=== PATIENT | male | born 2000 | race Caucasian/White ===

== ENCOUNTER 2022-01-30 11:44 | Emergency (ER) | payer OTHER, BC, SELFPAY ==
--- NOTE | ~2022-01-30 | CT_ITS ---
EXAMINATION: CT soft tissue neck w con DATE: 01/30/2022 13:06 INDICATION: Peritonsillar abscess. TECHNIQUE: Computed tomography (CT) of the neck was performed with 75 mL Omnipaque-350 intravenous co ntrast. Automated exposure control and iterative reconstruction technique were employed. The dose-susan gth product was 550.00 mGy-cm. COMPARISON: None FINDINGS: There is mild mucosal thickening in the paranasal sinuses. There is enlargement of the lenny angela tonsils, right worse than left. There is low-attenuation in the right palatine tonsil measuring up to 2.2 x 1.5 x 3.3 cm. There is mild bilateral high internal jugular chain lymphadenopathy, likely reactive. There is fat stranding in right neck, consistent with inflammation. There is mild mucosal thickening in the paranasal sinuses. There is kyphosis of cervical spine. IMPRESSION: 1. Enlarged palatine tonsils with low attenuation in right palatine tonsil, which may be phlegmon or early abscess. 2. Mild bilateral internal jugular chain lymphadenopathy, likely reactive. Reviewed, dictated and finalized at location B. IMPRESSION: 1. Enlarged palatine tonsils with low attenuation in right palatine tonsil, whi ch may be phlegmon or early abscess. 2. Mild bilateral internal jugular chain lymphadenopathy, likely reactive.
[2022-01-30 11:47] VITALS: BP 184/84; PULSE 126; RESP 20; TEMP 37; O2SAT 100
[2022-01-30 12:29] LABS: Basophils Absolute Auto 0.1 K/mm3 (0.0-0.1); Basophils Percent Auto 0.3 % (0.2-1.2); Eosinophils Percent Auto 0.1 % (0-4.4); Hematocrit 46.5 % (42.0-52.0); Hemoglobin 16.7 g/dL (14.0-18.0); Immature Granulocyte Absolute 0.06 K/mm3 (0.00-0.031); Immature Granulocyte Percent A 0.4 % (0-0.5); Lymphocytes Absolute Auto 2.52 K/mm3 (0.9-3.2); Lymphocytes Percent Auto 16.4 % (18.3-44.2); Mean Corpuscular HGB Conc 35.9 g/dl (32-36); Mean Corpuscular Hemoglobin 30.5 pg (26-34); Mean Platelet Volume 9.4 fl (7.4-10.4); Monocytes Absolute Auto 1.4 K/mm3 (0.1-0.6); Monocytes Percent Auto 8.8 % (2.6-8.5); Neutrophils Absolute Auto 11.4 K/mm3 (1.3-6.7); Platelet Count Result 226 k/mm3 (150-375); Red Blood Count 5.47 M/mm3 (4.6-6.20); White Blood Count 15.4 K/mm3 (4.5-10.0)
[2022-01-30 12:38] LABS: Alanine Aminotransferase 21 U/L (6-50); Alkaline Phosphatase 69 U/L (38-126); Anion Gap 17 mmol/L (8-16); Aspartate Amino Transferase 27 U/L (17-59); Bilirubin,Total 1.2 mg/dL (0.2-1.3); Blood Urea Nitrogen 15 mg/dL (9-20); Calcium 9.9 mg/dL (8.4-10.2); Carbon Dioxide 29 mmol/L (22-30); Chloride 95 mmol/L (98-107); Estimated CRCL calculation 125 ml/min; Estimated Glomerular Filt Rate > 60; Glucose 98 mg/dL (65-110); Potassium 4.2 mmol/L (3.4-5.0); Sodium 141 mmol/L (137-145)
--- NOTE | 2022-01-30 14:05 | ED.URI ---
HPI - URI/Sore Throat General Chief Complaint: Upper Respiratory Infection <Dalia Watkins PA-C - Last Filed: 01/30/22 18:05> Stated Complaint: possible peritonsilar abscess <Dalia Watkins PA-C - Last Filed: 01/30/22 18:05> Time Seen by Provider: 01/30/22 13:37 <Dalia Watkins PA-C - Last Filed: 01/30/22 18:05> Source: patient <Dalia Watkins PA-C - Last Filed: 01/30/22 18:05> Mode of arrival: ambulatory <Dalia Watkins PA-C - Last Filed: 01/30/22 18:05> Limitations: no limitations <Dalia Watkins PA-C - Last Filed: 01/30/22 18:05> History of Present Illness HPI Narrative: This is a 21 year old male that presents to the ER for sore throat ongoing over the last couple of days. Reports he has had difficulty swallowing since yesterday. Denies fever. <Dalia Waktins PA-C - Last Filed: 01/30/22 18:05> Related Data Allergies/Adverse Reactions: Allergies Allergy/AdvReac Type Severity Reaction Status Date / Time No Known Allergies Allergy Verified 01/30/22 13:28 <Dalia Watkins PA-C - Last Filed: 01/30/22 18:05> Review of Systems Review of Systems: CONSTITUTIONAL: Denies fever ENT: Reports sore throat GASTROINTESTINAL: Denies vomiting <Dalia Watkins PA-C - Last Filed: 01/30/22 18:05> All systems reviewed & are unremarkable except as noted in HPI and below <Dalia Watkins PA-C - Last Filed: 01/30/22 18:05> [facility]LY [facility] Past Medical History Medical History: Medical History (Updated 01/30/22 @ 18:34 by Jose Delacruz MD) No active medical problems <Dalia Watkins PA-C - Last Filed: 01/30/22 18:05> Social History Social History: Social History (Updated 01/30/22 @ 14:10 by Dalia L. Watkins, PA-C) Smoking status: Never smoker <Dalia Watkins PA-C - Last Filed: 01/30/22 18:05> Exam Narrative: GENERAL: Well-appearing, well-nourished, and in no acute distress. HEAD: Normocephalic, atraumatic. EYES: EOMI. ENT: Nares clear, no rhinorrhea or epistaxis. Mucous membranes moist. Oropharynx with sever tonsillar hypertrophy (R>L) NECK: Supple. Right-sided anterior cervical tender adenopathy CHEST: Clear to auscultation. No respiratory distress. No wheezes rales or rhonchi HEART: Regular rate and rhythm. No murmur heard. Normal peripheral pulses. EXTREMITIES: Normal range of motion. No edema. SKIN: Warm, dry, no rash. NEURO: No focal deficits. Alert and oriented x3. PSYCH: Normal mood and affect <Dalia Watkins PA-C - Last Filed: 01/30/22 18:05> Course CHART CALCULATOR/PA Physician Supervision Patient presenting for evaluation of sore throat, significant edema on exam with concern for potential peritonsillar abscess. CT imaging shows phlegmon versus early abscess. Patient was given IV steroids, antibiotics. Dr. Bonner with ENT was consulted and came to the emergency department. Decided to attempt drainage at bedside which was successful and incision and drainage notable for purulent discharge. Dr. Pena recommended oral antibiotics and steroid Dosepak outpatient. For this patient encounter, I reviewed the CHART CALCULATOR or PA documentation, treatment plan, and medical decision making; and I had [id number] time with this patient. <Ya Wade MD - Last Filed: 01/30/22 19:13> Consultations Consultation #1: Spoke with Dr. Delacruz about patient and workup who came to the ER to evaluate patient and drained the abscess. <Dalia Watkins PA-C - Last Filed: 01/30/22 18:05> Date: 01/30/22 <KELLE Blunt Last Filed: 01/30/22 18:05> Vital Signs Vital signs: Vital Signs Temperature 37.0 C 01/30/22 11:47 Pulse Rate 126 H 01/30/22 11:47 Respiratory Rate 20 01/30/22 11:47 Blood Pressure 184/84 H 01/30/22 11:47 Pulse Oximetry 100 01/30/22 11:47 Oxygen Delivery Room Air 01/30/22 11:47 Temperature 37.0 C 01/30/22 11:47 Pulse Rate 115 H 01/30/22 18:27 Respiratory Rate 18 01/30/22 18:27 Blood Pressure
[2022-01-30] MEDS: SODIUM CHLORIDE 0.9% IV 1,000 ML 999 ML IV CONT ×2 (14:39→17:21)
[2022-01-30] MEDS: AMPICILLIN SULB 3 GM/NS 100 ML 3 GM/100 ML VIAL IVPB (14:39)
[2022-01-30] MEDS: KETOROLAC 15 MG/ML VIAL (*BKC) IV PUSH (14:40)
[2022-01-30 15:08] LABS: Lactic Acid Reflex 1.1 mmol/L (0.7-2.0)
[2022-01-30 15:49] VITALS: BP 146/75; PULSE 115; RESP 18; O2SAT 99
--- NOTE | 2022-01-30 17:23 | PC.NURSE ---
Dr. Delacruz at bedside
--- NOTE | 2022-01-30 18:01 | WPDPROCEDUR ---
Procedures Other Procedures Procedure 1: Other Procedure: I and D of right peritonsillar abscess. CT reviewed consent obtained risks benefits costs discussed with patient area next the right tonsil infiltrated with 2 cc 1% lidocaine 1 100,000 parts epinephrine mucosa cut with 11 blade hemostat utilized to puncture and abscess copious amounts purulence drained patient tolerated procedure well no complications
--- NOTE | 2022-01-30 18:01 | WPDCN ---
Assessment and Plan Assessment and plan (1) Peritonsillar abscess: Code(s): J36 - Peritonsillar abscess Status: Acute Assessment and Plan: Augmentin for 10 days Medrol Dosepak follow-up in several weeks to discuss tonsillectomy. Patient voiced understanding and agreed. (2) Recurrent tonsillitis: Code(s): J03.91 - Acute recurrent tonsillitis, unspecified Status: Acute HPI Data of Consult Date/Time: 01/30/22 18:01 Primary Care Provider: Brain Talavera, Consult Narrative Reason for consult: right-sided TABULAR TYPIST Narrative: Hai Austin is a 21 year old male with frequent sore throats CT demonstrates right-sided large TABULAR TYPIST ENT consult for drainage. Patient reports getting multiple sore throats tonsillitis episodes per year. Review of Systems Review of Systems: All systems reviewed & are unremarkable except as noted in HPI and below PMFSH Past Medical History Medical History (Updated 01/30/22 @ 18:34 by Jose Delacruz MD) No active medical problems Social History Social History (Updated 01/30/22 @ 14:10 by Dalia Watkins PA-C) Smoking status: Never smoker Meds Home Medications and Allergies Home Medications Medication Instructions Recorded Confirmed Type amoxicillin 875 mg-potassium 1 tablet PO Q12H 10 days #20 tabs 01/30/22 Rx clavulanate 125 mg tablet hydrocodone 5 mg-acetaminophen 325 1 tablet PO Q6H PRN pain #14 tabs 01/30/22 Rx mg tablet methylprednisolone 4 mg tablets in See Rx Instructions PO .COMPLEX 01/30/22 Rx a dose pack #21 ea Allergies Allergy/AdvReac Type Severity Reaction Status Date / Time No Known Allergies Allergy Verified 01/30/22 13:28 Vital Signs Vital Signs - 24 hr 01/30/22 11:47 01/30/22 15:49 Temperature 37.0 C Pulse Rate 126 H 115 H Respiratory Rate 20 18 Blood Pressure 184/84 H 146/75 H Pulse Oximetry 100 99 Oxygen Delivery Room Air Exam Narrative: Deviation right-sided edema the peritonsillar region see procedure note drained Results Labs CBC & Chem 7: 01/30/22 12:13 01/30/22 12:13 Labs: Short CBC 01/30/22 Range/Units 12:13 WBC 15.4 H (4.5-10.0) K/mm3 Hgb 16.7 (14.0-18.0) g/dL Hct 46.5 (42.0-52.0) % Plt Count 226 (150-375) k/mm3 BMP 01/30/22 12:13 Sodium 141 Potassium 4.2 Chloride 95 L Carbon Dioxide 29 BUN 15 Creatinine 1.10 Glucose 98 Calcium 9.9 Liver Function 01/30/22 Range/Units 12:13 Total Bilirubin 1.2 (0.2-1.3) mg/dL AST 27 (17-59) U/L ALT 21 (6-50) U/L Alkaline Phosphatase 69 (38-126) U/L Albumin 5.0 (3.5-5.1) g/dL
[2022-01-30 18:27] VITALS: BP 152/80; PULSE 115; RESP 18; O2SAT 100
== END 2022-01-30 18:32 | disposition home or self-care (01) ==
PROVIDERS: Emergency Medicine; Physician Assistant; Emergency Provider Emergency Medicine; PCP Family Medicine
DX: J36 Peritonsillar abscess (principal)
CPT/HCPCS: 36415; 42700; 70491; 80053; 83605; 85025; 87040; 96361; 96365; 96375; 99284; A9270; J0131; J0295; J1100; J1885; J7030; Q9967

== ENCOUNTER 2022-10-08 08:49 | Emergency (ER) | payer OTHER, BC, SELFPAY ==
--- NOTE | 2022-10-08 09:03 | ED.URI ---
HPI - URI/Sore Throat General Chief Complaint: Upper Respiratory Infection Stated Complaint: Sore Throat Source: patient and RN notes reviewed History of Present Illness HPI Narrative: 21 yo M presents to urgent care with complaints of a sore throat x 2 days. Pt reports it feels like he is choking when he sleeps and is constantly waking him up. Pt reports fatigue and contributes this to not sleeping. Pt denies any fevers, chills, SOB, chest pain, or vomiting. Pt states this feels like when he had a peritonsillar abscess back in January. Pt took Tylenol around 0630 today. Related Data Home Medications Medication Instructions Recorded Confirmed citalopram 40 mg tablet 40 mg PO DAILY 08/07/22 10/08/22 omeprazole 40 mg capsule,delayed 40 mg PO DAILY 10/08/22 10/08/22 release Allergies Allergy/AdvReac Type Severity Reaction Status Date / Time No Known Allergies Allergy Verified 10/08/22 09:14 Review of Systems Review of Systems: Pertinent positives and pertinent negatives per HPI. [facility] Past Medical History Medical History (Updated 10/08/22 @ 09:36 by Bea Goyal, [employer]) No active medical problems Social History Social History (Updated 08/07/22 @ 09:30 by Rebeca Higgins, [facility]) Smoking status: Never smoker Alcohol intake: current Lack of Transportation: No Lack of Food: Never True Current Housing: I Have Housing Concerned About Future Housing: No Difficulty Paying Gas/Electric Bills: No Difficulty Paying for Meds: No Currently Unemployed: No Education: Associate Degree Difficulty w/ Childcare or Family Care: No Comments At the time of my signature, I reviewed and agree with the nursing past medical, surgical, social, and family history. There is no relevant family history pertinent to the patient complaint. Exam Narrative: GENERAL: This is a well-nourished, well-developed patient, in no apparent distress. HEAD: normocephalic, atraumatic. EYES: Sclera clear/white. Vision is grossly intact. EARS: External ears normal, auditory canals clear and without drainage. Hearing grossly intact. NOSE: External nose normal with no obvious nasal discharge, nares without redness, no rhinorrhea. THROAT: Mucous membranes moist, right tonsil 3+. NECK: Neck supple, non-tender without lymphadenopathy, masses or thyromegaly. CARDIOVASCULAR: Regular rate and rhythm without murmurs, gallops, or rubs. RESPIRATORY: Clear to auscultation. Breath sounds equal bilaterally. No wheezes, rales, or rhonchi. SKIN: warm, intact with no suspicious lesions or rash, good texture and turgor. NEURO: awake, alert, and oriented to person, place and time. There were no obvious focal neurologic abnormalities. Course Course Level of Care: Express Care Visit Vital Signs Vital signs: Vital Signs Temperature 98.2 F 10/08/22 09:04 Pulse Rate 93 10/08/22 09:04 Respiratory Rate 20 10/08/22 09:04 Blood Pressure 141/85 H 10/08/22 09:04 Pulse Oximetry 100 10/08/22 09:04 Oxygen Delivery Room Air 10/08/22 09:04 Temperature 98.2 F 10/08/22 09:04 Pulse Rate 93 10/08/22 09:04 Respiratory Rate 20 10/08/22 09:04 Blood Pressure 141/85 H 10/08/22 09:04 Pulse Oximetry 100 10/08/22 09:04 Oxygen Delivery Room Air 10/08/22 09:04 Reviewed MDM - URI/Sore Throat MDM Narrative Medical decision making narrative: Due to pt's enlarged right tonsil and reports of it feeling the same as when he had a peritonsillar abscess back in January, pt will be transferred to ED for further evaluation. Pt agrees to plan of care and is able to drive himself. Pt is stable. NAD. No trismus, dysphonia, or drooling. VSS. Pt instructed to be NPO until further evaluated. Report given to Dr. Dickey at [facility] who accepts pt. Differential Diagnosis Differential diagnosis: Likely upper respiratory infection, viral infection and pharyngitis Lab Data Attestation: I reviewed the patient's la
[2022-10-08 09:04] VITALS: BP 141/85; PULSE 93; RESP 20; TEMP 36.8; O2SAT 100
== END 2022-10-08 09:38 | disposition short-term general hospital (02) ==
PROVIDERS: Emergency Provider Nurse Practitioner Family; PCP Family Medicine
DX: R13.10 Dysphagia, unspecified (principal); J02.9 Acute pharyngitis, unspecified
CPT/HCPCS: 87081; 87880; 99213; G0463

== ENCOUNTER 2022-10-08 10:14 | Emergency (ER) | payer OTHER, BC, SELFPAY ==
--- NOTE | ~2022-10-08 | CT_ITS ---
CT scan of the Neck Technique: 2.5 mm axial scans were obtained through the neck after intravenous administration of 75 c c Omnipaque 350. Coronal and sagittal reconstructions of the neck were obtained. Dose reduction techn ique was used on this scan by utilizing automated exposure control and iterative reconstruction techn ique. The dose-length product (DLP) was 740.05 mGy-cm. Clinical History: Sore throat COMPARISON: 01/30/2022 Findings: Mildly prominent bilateral level 2 cervical lymph nodes are present. The parotid and submandibular gl ands are unremarkable. There is prominent appearance of the bilateral palatine tonsillar regions, wit hout definite abscess. Parapharyngeal fat is preserved bilaterally. The thyroid gland appears normal. Images of the lung apices reveal no abnormalities. Left maxillary s inus disease is present. Remaining paranasal sinuses and mastoid air cells are clear. Impression: Prominent bilateral palatine tonsils, suggestive of tonsillitis. No definite abscess identified. Left maxillary sinus disease. Reviewed, dictated and finalized at location . Impression: Prominent bilateral palatine tonsils, suggestive of tonsillitis. No definite ab scess identified. Left maxillary sinus disease.
[2022-10-08 10:19] VITALS: BP 149/78; PULSE 83; RESP 16; TEMP 36.9; O2SAT 98
[2022-10-08 11:17] LABS: Basophils Absolute Auto 0.1 K/mm3 (0.0-0.1); Basophils Percent Auto 0.5 % (0.2-1.2); Eosinophils Absolute Auto 0.1 K/mm3 (0-0.3); Eosinophils Percent Auto 1.3 % (0-4.4); Immature Granulocyte Absolute 0.03 K/mm3 (0.00-0.031); Immature Granulocyte Percent A 0.3 % (0-0.5); Lymphocytes Absolute Auto 2.46 K/mm3 (0.9-3.2); Lymphocytes Percent Auto 23.7 % (18.3-44.2); Mean Corpuscular HGB Conc 34.7 g/dl (32-36); Mean Corpuscular Hemoglobin 30.2 pg (26-34); Mean Platelet Volume 9.4 fl (7.4-10.4); Monocytes Absolute Auto 0.8 K/mm3 (0.1-0.6); Monocytes Percent Auto 7.2 % (2.6-8.5); Platelet Count Result 173 k/mm3 (150-375); Red Blood Count 5.63 M/mm3 (4.6-6.20); Red Cell Distribution Width 11.9 % (11.5-14.5); White Blood Count 10.4 K/mm3 (4.5-10.0)
[2022-10-08] MEDS: SODIUM CHLORIDE 0.9% IV 1,000 ML 999 ML IV CONT (11:20)
[2022-10-08] MEDS: KETOROLAC 30 MG/ML VIAL (*BKC) IV PUSH (11:21)
[2022-10-08 11:31] LABS: Alanine Aminotransferase 27 U/L (6-50); Albumin Level 4.6 g/dL (3.5-5.1); Alkaline Phosphatase 57 U/L (38-126); Anion Gap 6 mmol/L (8-16); Aspartate Amino Transferase 30 U/L (17-59); Bilirubin,Total 0.9 mg/dL (0.2-1.3); Blood Urea Nitrogen 19 mg/dL (9-20); Calcium 9.4 mg/dL (8.4-10.2); Carbon Dioxide 29 mmol/L (22-30); Chloride 103 mmol/L (98-107); Estimated CRCL calculation 172 ml/min; Estimated Glomerular Filt Rate > 60; Glucose 91 mg/dL (65-110); Potassium 4.5 mmol/L (3.4-5.0); Sodium 138 mmol/L (137-145)
--- NOTE | 2022-10-08 13:04 | ED.GENADULT ---
HPI - General Adult General Chief complaint: Upper Respiratory Infection Stated complaint: SORE THROAT R/O PERITONSILAR ABSCESS Time Seen by Provider: 10/08/22 10:29 History of Present Illness HPI narrative: Hai Austin is a 21 y/o male who presents with reports of a sore throat for 1-2 days, reports possible fever yesterday, no cough/ ear pain/ runny nose or shortness of breath. He states he went to an and was sent here to make sure he does not have a tonsillar abscess. He reports he had a tonsillar abscess in the past and reports it sort of feels similar to that. Denies difficulty swallowing just reports of having some pain. Related Data Home Medications Medication Instructions Recorded Confirmed citalopram 40 mg tablet 40 mg PO DAILY 08/07/22 10/08/22 omeprazole 40 mg capsule,delayed 40 mg PO DAILY 10/08/22 10/08/22 release Allergies Allergy/AdvReac Type Severity Reaction Status Date / Time No Known Allergies Allergy Verified 10/08/22 09:14 Review of Systems Review of Systems: CONSTITUTIONAL: Denies fever, chills, or sweats. EYES: Denies visual changes, redness, or discharge. ENT: Denies rhinorrhea, congestion, reports of sore throat that started about 2 days ago. CARDIOVASCULAR: Denies chest pain, palpitations, or edema. RESPIRATORY: Denies cough or dyspnea. GASTROINTESTINAL: Denies abdominal pain, nausea, vomiting, or diarrhea. GENITOURINARY: Denies dysuria or hematuria. SKIN: Denies rash or itching. MUSCULOSKELETAL: Denies back pain, joint pain, or myalgia. NEUROLOGIC: Denies headache, numbness, dizziness, or weakness. PSYCHIATRIC: Denies anxiety or depression. [facility] Past Medical History Medical History (Updated 10/08/22 @ 13:42 by Liset Eduardo APRN) No active medical problems Social History Social History Smoking status: Never smoker Alcohol intake: current Lack of Transportation: No Lack of Food: Never True Current Housing: I Have Housing Concerned About Future Housing: No Difficulty Paying Gas/Electric Bills: No Difficulty Paying for Meds: No Currently Unemployed: No Education: Associate Degree Difficulty w/ Childcare or Family Care: No Exam Narrative: GENERAL: Well-appearing, well-nourished, and in no acute distress. HEAD: Normocephalic, atraumatic. EYES: PERRLA and EOMI. ENT: Nares clear, no rhinorrhea or epistaxis. Mucous membranes moist. Oropharynx noted to have erythema no exudate, right tonsil is slightly larger then left but overall mild tonsillar edema noted. - airway intact no other lesions. Bilateral TMs pearly holalnd nonbulging NECK: Supple. No adenopathy or masses. No carotid bruits or JVD CHEST: Clear to auscultation. No respiratory distress. No wheezes rales or rhonchi HEART: Regular rate and rhythm. No murmur heard. Normal peripheral pulses. ABDOMEN: Soft, nontender, nondistended, normal active bowel sounds. EXTREMITIES: Normal range of motion. No edema. SKIN: Warm, dry, no rash. NEURO: No focal deficits. Alert and oriented x3. PSYCH: Normal mood and affect. Course Vital Signs Vital signs: Vital Signs Temperature 36.9 C 10/08/22 10:19 Pulse Rate 83 10/08/22 10:19 Respiratory Rate 16 10/08/22 10:19 Blood Pressure 149/78 H 10/08/22 10:19 Pulse Oximetry 98 10/08/22 10:19 Temperature 36.9 C 10/08/22 10:19 Pulse Rate 83 10/08/22 10:19 Respiratory Rate 16 10/08/22 10:19 Blood Pressure 149/78 H 10/08/22 10:19 Pulse Oximetry 98 10/08/22 10:19 Vitals reviewed by me. Medical Decision Making MDM Narrative Medical decision making narrative: Patient is afebrile here, not tachy, tolerating secretions well, tonsils are noted to have erythema with mild swelling right tonsil slightly larger then left No evidence of any other URI symptoms Patient reports history of pervious peritonsillar abscess and this feels similar Labs are stable Strep is ne
[2022-10-08 13:05] LABS: Strep Group A RT-PCR NOT DETECTED (Negative)
[2022-10-08 14:05] VITALS: BP 126/80; PULSE 76; RESP 16; TEMP 36.8; O2SAT 100
== END 2022-10-08 14:05 | disposition home or self-care (01) ==
PROVIDERS: Emergency Provider Nurse Practitioner Family; PCP Family Medicine
DX: J03.90 Acute tonsillitis, unspecified (principal)
CPT/HCPCS: 36415; 70491; 80053; 85025; 87081; 87651; 87880; 96361; 96374; 96375; 99284; J1100; J1885; J7030; Q9967

== ENCOUNTER 2022-12-17 01:19 | Day surgery (SDC) | payer OTHER, BC, SELFPAY ==
[2022-12-11 13:29] VITALS: BMI 33.4
--- NOTE | 2022-12-11 13:47 | PC.NURSE ---
Report to the Outpatient Waiting Room, entrance under the green pavilion located off [facility], at time _0715_ on date _12/17/22 . Planned Procedure Time: ___09 . Time changes happen often and if your time is changed the preop area will call you the afternoon before. - You and your visitor will be asked to self-screen and do not enter if you have any COVID symptoms. - A mask is optional within the hospital at this time. Patients may have clear liquids (water, carbonated beverages, clear teas, apple juice) until 3 hours prior to surgery with a maximum of 20 ounces. - No food from midnight until time of surgery Take the following medications with a SIP of water the morning of surgery: ___SERTRALINE, ALPRAZOLAM DO NOT STOP ANY OF YOUR OTHER PRESCRIPTION MEDICATIONS PRIOR TO SURGERY ?EXCEPT THE FOLLOWING Medications to discontinue per physician NONE Date to take last dose__NONE Please no make-up, nail rwandan, hairspray, perfume, deodorant, or body powder the day of surgery. No jewelry (including any body piercings) or valuables the day of surgery, leave them at home. Please take a shower or bath the night before, or the morning of, surgery with an antibacterial soap. Wear comfortable, loose fitting clothing. - Jewelry must be removed prior to entering the operating room. Rings and piercings that are not removed may be cut off. - The hospital will not accept responsibility for valuables. - Please leave all valuables, including medications, at home the day of surgery. If you are going home after surgery, a licensed residential driver must drive you home. - NO public transportation without another adult if you receive anesthesia. - We recommend that an adult stay with you for 24 hours following discharge. - We also recommend that you do not drive, make important decision, drink alcoholic beverages, or take any drugs that were not prescribed by your health care provider for at least 24 hours after your discharge time. Follow any additional instructions given to you from your surgeon. If you or anyone in your household have experienced Covid symptoms in the past week, please notify your surgeon or the nurse liaison at the phone number below for possible testing. Telephone instructions given to __MICHOACANO_and asked if any additional questions and then verbalized understanding. Patient advised to call surgeon office or pre surgery nurse liaison [phone] if any additional questions.
--- NOTE | 2022-12-15 16:32 | PM.IMHP ---
H&P: HPI History of Present Illness Date/Time: 12/15/22 16:32 Chief Complaint: recurrent tonsillitis sleep disordered breathing tonsillar hypertrophy adenoid hypertrophy snoring Narrative: planned procedure Review of Systems Review of Systems: All systems reviewed & are unremarkable except as noted in HPI and below PMFSH Past Medical History Medical History No active medical problems Social History Social History Smoking status: Never smoker Alcohol intake: current Substance use type: does not use Lack of Transportation: No Lack of Food: Never True Current Housing: I Have Housing Concerned About Future Housing: No Difficulty Paying Gas/Electric Bills: No Difficulty Paying for Meds: No Currently Unemployed: No Education: Associate Degree Difficulty w/ Childcare or Family Care: No Spiritual care concerns: No Meds Home Medications and Allergies Home Medications Medication Instructions Recorded Confirmed Type omeprazole 40 mg capsule,delayed 40 mg PO DAILY 10/08/22 12/11/22 History release lorazepam 0.5 mg tablet 0.5 mg PO DAILY 12/11/22 12/11/22 History sertraline 50 mg tablet 50 mg PO DAILY 12/11/22 12/11/22 History Allergies Allergy/AdvReac Type Severity Reaction Status Date / Time No Known Allergies Allergy Verified 10/11/22 15:47 Exam Narrative: large tonsils chronic appearing large adenoids Assessment and Plan Assessment and plan (1) Snoring: Code(s): R06.83 - Snoring Status: Acute Assessment and Plan: plan operating room tonsillectomy adenoidectomy, patient meets criteria on multiple fronts, risks were discussed including bleeding infection damage to surrounding structures change in swallow change in taste which could be permanent.? Postoperative bleeding 3-5%.? Time-out for time off school inherent risks of narcotic use in anyone. Damage to any structure above the clavicles by myself.? Damage to any structure during the induction and maintenance of anesthesia.? Patient voiced understanding and agreed.? (2) Adenoid hypertrophy: Code(s): J35.2 - Hypertrophy of adenoids Status: Acute (3) Hypertrophy of both inferior nasal turbinates: Code(s): J34.3 - Hypertrophy of nasal turbinates Status: Acute (4) Nasal obstruction: Code(s): J34.89 - Other specified disorders of nose and nasal sinuses Status: Acute (5) Recurrent tonsillitis: Code(s): J03.91 - Acute recurrent tonsillitis, unspecified Status: Acute
[2022-12-17] VITALS (11 sets, daily range): BP systolic 136–181; BP diastolic 90–119; PULSE 72–99; RESP 12–20; TEMP 36.2–36.6; O2SAT 94–100
--- NOTE | 2022-12-17 07:16 | WPDHPUPDATE1 ---
History and Physical Update Update Date/Time: 12/17/22 07:16 History and Physical has been reviewed, including an updated exam of the patient. There are NO changes in the patient's condition. Risks, benefits, and alternatives have been discussed and questions answered. Patient agrees to proceed with procedure.
--- NOTE | 2022-12-17 07:55 | P.PNAN_ITS ---
Anes - Initial Pre Proc Eval Procedure: Operation Date: 12/17/22 09:15 Proposed Procedures p Tonsillectomy And Adenoidectomy - Jose Delacruz MD Date/Time: 12/17/22 07:55 Surgeon: Jose Delacruz MD Pre Op Diagnosis: chronic tonsillitis, hypertrophy adenoids Patient Data Age: 22 Gender: M Height: 1.88 m Weight: 118 kg Allergies Allergy/AdvReac Type Severity Reaction Status Date / Time No Known Allergies Allergy Verified 10/11/22 15:47 Home Medications Medication Instructions Recorded Confirmed Type omeprazole 40 mg capsule,delayed 40 mg PO DAILY 10/08/22 12/11/22 History release lorazepam 0.5 mg tablet 0.5 mg PO DAILY 12/11/22 12/11/22 History sertraline 50 mg tablet 50 mg PO DAILY 12/11/22 12/11/22 History Patient hx anesthesia problems: post op nausea/vomiting Family hx anesthesia problems: none Results Review: All pre-operative results and documents have been reviewed as part of the pre- operative evaluation. [facility] Past Medical History Medical History (Updated 12/17/22 @ 07:55 by Rupesh Whelan DO) Anxiety PONV (postoperative nausea and vomiting) Social History Social History Smoking status: Never smoker Alcohol intake: current Substance use type: does not use Lack of Transportation: No Lack of Food: Never True Current Housing: I Have Housing Concerned About Future Housing: No Difficulty Paying Gas/Electric Bills: No Difficulty Paying for Meds: No Currently Unemployed: No Education: Associate Degree Difficulty w/ Childcare or Family Care: No Spiritual care concerns: No Anes - Eval Final PreProcedure Day of Procedure 12/17/22 07:55 Patient weight: obese Heart: regular rate and rhythm Lungs: clear to auscultation Airway: Mallampati scale class II Neurological: alert and oriented Last oral intake: >/= 8 hours ASA classification: II Emergent: no Anesthetic plan: proceed Anesthesia type and monitoring: general ETT and standard monitoring Results Review: All pre-operative results and documents have been reviewed as part of the pre- operative evaluation. Informed Consent: The patient's anesthetic plan and its attendant risks and benefits were discussed with the patient/family/POA. Questions were solicited and answers provided to the satisfaction of the patient/family/POA.
[2022-12-17] MEDS: ACETAMINOPHEN 500 MG TABLET 1000 MG PO (08:30)
[2022-12-17] MEDS: SCOPOLAMINE 1.5 MG PATCH TRANSDERM (08:30)
[2022-12-17] MEDS: LACTATED RINGERS 1,000 ML 30 ML IV CONT ×2 (08:30→10:53)
[2022-12-17] MEDS: OXYMETAZOLINE HCL 0.05% NAS 15 ML BTL (*BKC) 1 SPRAY NASAL (09:57)
[2022-12-17] MEDS: fentaNYL CITRATE INJ (*CRX) 100 MCG/2 ML VIAL 25 MCG IV PUSH ×4 (10:35→10:48)
--- NOTE | 2022-12-17 10:43 | W.PM.PROC2 ---
Procedure Note - Detailed Date of Procedure 12/17/22 Pre-op Diagnosis chronic tonsillitis, hypertrophy adenoids Post-op Diagnosis Same Procedure Performed Tonsillectomy adenoidectomy Surgeon Jose Delacruz MD Anesthesia General Indications See above Findings Very large tonsils endophytic very large adenoids as well 3+ very large posterior inferior turbinates Description of Procedure Patient identified consent verified preop. Patient brought to the operating room. Time-out performed. General anesthesia induced endotracheal tube secured airway. Patient prepped draped position procedure confirmed. Second time-out performed. McIvor mouth gag inserted to reveal very large tonsils. They were removed in the bilateral they removed bilaterally in extracapsular plane using Bovie electrocautery at a setting of 10. Any bleeding was controlled with Bovie suction electrocautery at a setting of 15. In-between tonsils the McIvor mouth gag was lowered and reopened to allow blood flow to return to the tongue. After tonsils were out the McIvor mouth gag was again opened 30 seconds later to reveal no further bleeding. Red rubber catheters were then placed transnasally I could not get 1 down the right side. In because the some bleeding ensued from the right nasal passage. Adenoid pad was viewed very large 3+ this was removed with Bovie suction electrocautery at a setting of 30. The inferior turbinates were also very very large. I could not remove these through the mouth. The patient was not consented for turbinectomy. Red rubber catheters removed Afrin scored on the nasal passages. Specially the right side given that there was very scant bleeding from the placement of the red rubber catheter. Patient tolerated the procedure well McIvor mouth gag was removed. No complications. Blood loss 7 cc. Care the patient given back to Anesthesiology. I performed all dictated portions the procedure there were no complications. Patient taken to PACU. Estimated Blood Loss -7.0 Drains No Packing No Pathology Yes Complications No immediate complications Condition Stable Disposition PACU [facility] Billing Surgery - Charge Forward: Surgery Billing
[2022-12-17] MEDS: ONDANSETRON INJ 4 MG/2 ML VIAL IV PUSH (11:09)
[2022-12-17] MEDS: diphenhydrAMINE HCl INJ 50 MG/ML VIAL 25 MG IV PUSH (11:38)
[2022-12-17] MEDS: LABETALOL HCL INJ 100 MG/20 ML VIAL IV PUSH (12:31)
== END 2022-12-17 12:55 | disposition home or self-care (01) ==
PROVIDERS: PCP Family Medicine; Visit Provider Otolaryngology
PROC: (CPT 42821; principal; 2022-12-17 09:15)
DX: J35.3 Hypertrophy of tonsils with hypertrophy of adenoids (principal); R06.83 Snoring; J34.89 Other specified disorders of nose and nasal sinuses
CPT/HCPCS: 42821; 88302; A9270; J0330; J1100; J1200; J2250; J2405; J2704; J3010; J7120

== ENCOUNTER 2022-12-18 16:59 | Emergency (ER) | payer OTHER, BC, SELFPAY ==
[2022-12-18 17:05] VITALS: BP 155/88; PULSE 97; RESP 16; TEMP 36.3; O2SAT 97
--- NOTE | 2022-12-18 17:22 | ED.GENADULT ---
HPI - General Adult General Chief complaint: Unspecified Stated complaint: post t & a bleed Time Seen by Provider: 12/18/22 17:17 Source: patient Mode of arrival: ambulatory Limitations: no limitations History of Present Illness HPI narrative: This is a 22 year old male that presents to the ER for bleeding s/p tonsillectomy. Reports tonsillectomy yesterday with Dr. Delacruz. Reports he started bleeding about 45 minutes ago. It finally started to slow down just prior to arrival. Denies fever or vomiting. Related Data Home Medications Medication Instructions Recorded Confirmed omeprazole 40 mg capsule,delayed 40 mg PO DAILY 10/08/22 12/17/22 release lorazepam 0.5 mg tablet 0.5 mg PO DAILY 12/11/22 12/11/22 sertraline 50 mg tablet 50 mg PO DAILY 12/11/22 12/17/22 Allergies Allergy/AdvReac Type Severity Reaction Status Date / Time No Known Allergies Allergy Verified 12/17/22 10:05 Review of Systems Review of Systems: CONSTITUTIONAL: Denies fever ENT: Reports sore throat All systems reviewed & are unremarkable except as noted in HPI and below PMFSH Past Medical History Medical History (Updated 12/18/22 @ 18:23 by Dalia Watkins PA-C) Anxiety PONV (postoperative nausea and vomiting) Social History Social History Smoking status: Never smoker Alcohol intake: current Substance use type: does not use Lack of Transportation: No Lack of Food: Never True Current Housing: I Have Housing Concerned About Future Housing: No Difficulty Paying Gas/Electric Bills: No Difficulty Paying for Meds: No Currently Unemployed: No Education: Associate Degree Difficulty w/ Childcare or Family Care: No Spiritual care concerns: No Exam Narrative: GENERAL: Well-appearing, well-nourished, and in no acute distress. HEAD: Normocephalic, atraumatic. EYES: EOMI. ENT: Nares clear, no rhinorrhea or epistaxis. Mucous membranes moist. Oropharynx with mild oozing of blood and clots noted to the right tonsillar bed CHEST: No respiratory distress. HEART: Regular rate EXTREMITIES: Normal range of motion. No edema. SKIN: Warm, dry, no rash. NEURO: No focal deficits. Alert and oriented x3. PSYCH: Normal mood and affect Course Course Emergency Course: Dr. Delacruz at bedside evaluating patient. Was able to cauterize area of bleeding Consultations Consultation #1: Dr. Delacruz came to the ER and evaluated patient Date: 12/18/22 Vital Signs Vital signs: Vital Signs Temperature 97.4 F L 12/18/22 17:05 Pulse Rate 97 12/18/22 17:05 Respiratory Rate 16 12/18/22 17:05 Blood Pressure 155/88 H 12/18/22 17:05 Pulse Oximetry 97 12/18/22 17:05 Oxygen Delivery Room Air 12/18/22 17:05 Temperature 97.4 F L 12/18/22 17:05 Pulse Rate 102 H 12/18/22 18:04 Respiratory Rate 18 12/18/22 18:04 Blood Pressure 155/96 H 12/18/22 18:04 Pulse Oximetry 95 12/18/22 18:04 Oxygen Delivery Room Air 12/18/22 17:05 Medical Decision Making MDM Narrative Medical decision making narrative: Patient presents to the emergency department for post tonsillectomy bleeding. Airway is patent. He is afebrile and nontoxic appearing. Dr. Delacruz came to bedside And evaluated patient was able to cauterize the area bleeding. Patient will be hydrated in the ED and given dose of pain medication. Would like patient to be given nausea medication as needed for home. He is to follow-up in clinic. He was given warnings to return to the ER Vital Signs Vital Signs: Vital Signs Temperature 97.4 F L 12/18/22 17:05 Pulse Rate 97 12/18/22 17:05 Respiratory Rate 16 12/18/22 17:05 Blood Pressure 155/88 H 12/18/22 17:05 Pulse Oximetry 97 12/18/22 17:05 Oxygen Delivery Room Air 12/18/22 17:05 Temperature 97.4 F L 12/18/22 17:05 Pulse Rate 102 H 12/18/22 18:04 Respiratory Rate 18 12/18/22 18:04 Blood Pressure 155/96 H 09/0
[2022-12-18] MEDS: ONDANSETRON INJ 4 MG/2 ML VIAL IV PUSH (18:00)
[2022-12-18 18:04] VITALS: BP 155/96; PULSE 102; RESP 18; O2SAT 95
--- NOTE | 2022-12-18 18:10 | WPDPROCEDUR ---
Procedures Other Procedures Procedure 1: Other Procedure: Ear would be cautery of tonsillar fossa. Consents were obtained verbally. Right tonsillar fossa anesthetize clot suctioned out no active bleeding. The tonsillar fossa was roughed up for about 10 minutes the only small amount of bleeding was from the right superior pole this area was cauterized with silver nitrate x3. Patient tolerated the procedure well no complications.
--- NOTE | 2022-12-18 18:10 | WPDCN ---
Assessment and Plan Assessment and plan (1) Post-tonsillectomy hemorrhage: Code(s): J95.830 - Postprocedural hemorrhage of a respiratory system organ or structure following a respiratory system procedure Status: Acute Assessment and Plan: Avoid ibuprofen no strenuous activity plenty of fluids. Please discharge the patient with a prescription for Zofran. He will call me with any bleeding. HPI Data of Consult Date/Time: 12/18/22 18:10 Primary Care Provider: Brain Talavera, Consult Narrative Narrative: Hai Austin is a 22 year old male status post tonsillectomy yesterday. Patient presents with bleeding from the right side. Review of Systems Review of Systems: All systems reviewed & are unremarkable except as noted in HPI and below PMFSH Past Medical History Medical History (Updated 12/18/22 @ 18:11 by Jose Delacruz MD) Anxiety PONV (postoperative nausea and vomiting) Social History Social History Smoking status: Never smoker Alcohol intake: current Substance use type: does not use Lack of Transportation: No Lack of Food: Never True Current Housing: I Have Housing Concerned About Future Housing: No Difficulty Paying Gas/Electric Bills: No Difficulty Paying for Meds: No Currently Unemployed: No Education: Associate Degree Difficulty w/ Childcare or Family Care: No Spiritual care concerns: No Meds Home Medications and Allergies Home Medications Medication Instructions Recorded Confirmed Type omeprazole 40 mg capsule,delayed 40 mg PO DAILY 10/08/22 12/17/22 History release lorazepam 0.5 mg tablet 0.5 mg PO DAILY 12/11/22 12/11/22 History sertraline 50 mg tablet 50 mg PO DAILY 12/11/22 12/17/22 History oxycodone 5 mg tablet 5 mg PO Q6-8H PRN pain #30 tabs 12/17/22 Rx Allergies Allergy/AdvReac Type Severity Reaction Status Date / Time No Known Allergies Allergy Verified 12/17/22 10:05 Vital Signs Vital Signs - 24 hr 12/18/22 17:05 12/18/22 18:04 Temperature 36.3 C L Pulse Rate 97 102 H Respiratory Rate 16 18 Blood Pressure 155/88 H 155/96 H Pulse Oximetry 97 95 Oxygen Delivery Room Air Exam Narrative: Left tonsillar fossa looks good right side had a clot which was suctioned out you can see the procedure note the area was roughed up for 10 minutes I was not able to induce any bleeding the right superior pole had 1 Od area that oozed slightly and this was cauterized with silver nitrate x3
[2022-12-18] MEDS: SODIUM CHLORIDE 0.9% IV 1,000 ML 999 ML IV CONT (18:28)
[2022-12-18] MEDS: MORPHINE SULFATE (*CRX) 4 MG/ML INJ IV PUSH (18:29)
[2022-12-18 19:21] VITALS: BP 131/78; PULSE 67; RESP 15; TEMP 36.6; O2SAT 100
== END 2022-12-18 19:22 | disposition home or self-care (01) ==
PROVIDERS: Emergency Provider Physician Assistant; PCP Family Medicine
DX: J95.830 Postprocedural hemorrhage of a respiratory system organ or structure following a respiratory system procedure (principal)
CPT/HCPCS: 42960; 96361; 96374; 96375; 99284; A9270; J2270; J2405; J7030

== ENCOUNTER 2022-12-24 08:24 | Day surgery (SDC) | payer OTHER, BC, SELFPAY ==
[2022-12-24] VITALS (8 sets, daily range): BP systolic 133–157; BP diastolic 80–107; PULSE 66–98; RESP 14–16; TEMP 36–36.6; O2SAT 93–100
--- NOTE | 2022-12-24 08:35 | PC.NURSE ---
Dr Delacruz @ bedside with pt.
--- NOTE | 2022-12-24 08:55 | ED.GENADULT ---
HPI - General Adult General Chief complaint: Recheck/Abnormal Lab/Rx Stated complaint: Bleeding from tonsils Time Seen by Provider: 12/24/22 08:27 History of Present Illness HPI narrative: 22-year-old male presented the ED for evaluation of right tonsillar bleeding. Patient had a recent tonsillectomy and started having bleeding. ENT was aware of the patient's pending arrival and arrived prior to the patient. Related Data Home Medications Medication Instructions Recorded Confirmed omeprazole 40 mg capsule,delayed 40 mg PO DAILY 10/08/22 12/17/22 release lorazepam 0.5 mg tablet 0.5 mg PO DAILY 12/11/22 12/11/22 sertraline 50 mg tablet 50 mg PO DAILY 12/11/22 12/17/22 Allergies Allergy/AdvReac Type Severity Reaction Status Date / Time No Known Allergies Allergy Verified 12/24/22 08:29 Review of Systems Review of Systems: All systems reviewed & are unremarkable except as noted in HPI and below PMFSH Past Medical History Medical History Anxiety PONV (postoperative nausea and vomiting) Social History Social History Smoking status: Never smoker Alcohol intake: current Substance use type: does not use Lack of Transportation: No Lack of Food: Never True Current Housing: I Have Housing Concerned About Future Housing: No Difficulty Paying Gas/Electric Bills: No Difficulty Paying for Meds: No Currently Unemployed: No Education: Associate Degree Difficulty w/ Childcare or Family Care: No Spiritual care concerns: No Exam Narrative: APPEARANCE: Well appearing, no pain, no distress, well-nourished. HEAD: normocephalic, atraumatic. EYES: PERRLA/EOMI, conjunctivae clear. NOSE: Normal no drainage EARS:TMS clear with good light reflex. THROAT: Right eschar bleeding NECK: Supple. No adenopathy, no masses. RESPIRATORY: Airway patent, respirations nonlabored. Clear to auscultation bilaterally, no rales, rhonchi, wheezing. CARDIOVASCULAR: Regular rate and rhythm without murmurs rubs or gallops. ABDOMINAL: Soft, nontender, nondistended, normal bowel sounds MUSCULOSKELETAL: Moves all extremities. Strength/ROM intact, No edema, No calf tenderness. NEURO: Alert. Cranial nerves II through XII intact. SKIN: Warm, dry. Normal Color Course Course Emergency Course: 22-year-old male presented the ED for evaluation of tonsillar bleeding. Patient was evaluated by Dr. Delacruz in the ED and is going to the operating room for treatment. Patient was started on IV fluids in the ED. Dr. Delacruz did not want labs drawn at this time. Patient is resting comfortably prior to going to the operating room. Vital Signs Vital signs: Vital Signs Temperature 97.9 F 12/24/22 08:26 Pulse Rate 97 12/24/22 08:26 Respiratory Rate 15 12/24/22 08:26 Blood Pressure 157/89 H 12/24/22 08:26 Pulse Oximetry 99 12/24/22 08:26 Oxygen Delivery Room Air 12/24/22 08:26 Temperature 96.8 F L 12/24/22 10:10 Pulse Rate 92 12/24/22 11:50 Respiratory Rate 16 12/24/22 11:50 Blood Pressure 134/80 12/24/22 11:50 Pulse Oximetry 93 12/24/22 10:38 Oxygen Delivery Room Air 12/24/22 11:50 Oxygen Flow Rate 10 12/24/22 10:25 Fraction of Inspired Oxygen 98 12/24/22 10:25 Medical Decision Making Vital Signs Vital Signs: Vital Signs Temperature 97.9 F 12/24/22 08:26 Pulse Rate 97 12/24/22 08:26 Respiratory Rate 15 12/24/22 08:26 Blood Pressure 157/89 H 12/24/22 08:26 Pulse Oximetry 99 12/24/22 08:26 Oxygen Delivery Room Air 12/24/22 08:26 Temperature 96.8 F L 12/24/22 10:10 Pulse Rate 92 12/24/22 11:50 Respiratory Rate 16 12/24/22 11:50 Blood Pressure 134/80 12/24/22 11:50 Pulse Oximetry 93 12/24/22 10:38 Oxygen Delivery Room Air 12/24/22 11:50 Oxygen Flow Rate 10 12/24/22 10:25 Fraction of Inspired Oxygen 98 12/24/22 10:25
[2022-12-24] MEDS: SODIUM CHLORIDE 0.9% IV 1,000 ML 999 ML IV CONT (08:59)
--- NOTE | 2022-12-24 09:00 | WPDCN ---
Assessment and Plan Assessment and plan (1) Post-tonsillectomy hemorrhage: Code(s): J95.830 - Postprocedural hemorrhage of a respiratory system organ or structure following a respiratory system procedure Status: Acute Assessment and Plan: Plan or control of tonsillectomy hemorrhage. Risks were discussed including bleeding infection damage to surrounding structures postoperative nausea need for more time off work time off school. The fact that this does not decrease the risk of bleeding in the future from a different spot. Patient voiced understanding of these risks and agreed. Damage to any structure of the clavicles by myself damage to any structure in the neck chin and remains anesthesia. Including vocal cord paralysis. HPI Data of Consult Date/Time: 12/24/22 09:00 Requesting Physician: Jose Delacruz MD Primary Care Provider: Brain Talavera, Consult Narrative Narrative: Hai Austin is a 22 year old male day 7 from tonsillectomy and adenoidectomy patient presents with bleeding. Review of Systems Review of Systems: All systems reviewed & are unremarkable except as noted in HPI and below PMFSH Past Medical History Medical History (Updated 12/18/22 @ 18:23 by Dalia Watkins PA-C) Anxiety PONV (postoperative nausea and vomiting) Social History Social History Smoking status: Never smoker Alcohol intake: current Substance use type: does not use Lack of Transportation: No Lack of Food: Never True Current Housing: I Have Housing Concerned About Future Housing: No Difficulty Paying Gas/Electric Bills: No Difficulty Paying for Meds: No Currently Unemployed: No Education: Associate Degree Difficulty w/ Childcare or Family Care: No Spiritual care concerns: No Meds Home Medications and Allergies Home Medications Medication Instructions Recorded Confirmed Type omeprazole 40 mg capsule,delayed 40 mg PO DAILY 10/08/22 12/17/22 History release lorazepam 0.5 mg tablet 0.5 mg PO DAILY 12/11/22 12/11/22 History sertraline 50 mg tablet 50 mg PO DAILY 12/11/22 12/17/22 History oxycodone 5 mg tablet 5 mg PO Q6-8H PRN pain #30 tabs 12/17/22 Rx ondansetron 4 mg disintegrating 4 mg PO Q8H PRN nausea and 12/18/22 Rx tablet vomiting #14 tabs Allergies Allergy/AdvReac Type Severity Reaction Status Date / Time No Known Allergies Allergy Verified 12/24/22 08:29 Vital Signs Vital Signs - 24 hr 12/24/22 08:26 12/24/22 09:00 Temperature 36.6 C Pulse Rate 97 66 Respiratory Rate 15 15 Blood Pressure 157/89 H 133/87 Pulse Oximetry 99 99 Oxygen Delivery Room Air Exam Narrative: Right tonsillar fossa examined clot present suctioned out brisk bleeding unable to control in ER tonsil both pressure. Bleeding clot formed again. Patient tolerated well
--- NOTE | 2022-12-24 09:03 | P.HP_ITS ---
H&P: HPI History of Present Illness Date/Time: 12/24/22 09:03 Chief Complaint: Tonsil bleed Narrative: Urgent procedure Review of Systems Review of Systems: All systems reviewed & are unremarkable except as noted in HPI and below [facility] Past Medical History Medical History (Updated 12/18/22 @ 18:23 by Dalia Watkins PA-C) Anxiety PONV (postoperative nausea and vomiting) Social History Social History Smoking status: Never smoker Alcohol intake: current Substance use type: does not use Lack of Transportation: No Lack of Food: Never True Current Housing: I Have Housing Concerned About Future Housing: No Difficulty Paying Gas/Electric Bills: No Difficulty Paying for Meds: No Currently Unemployed: No Education: Associate Degree Difficulty w/ Childcare or Family Care: No Spiritual care concerns: No Meds Home Medications and Allergies Home Medications Medication Instructions Recorded Confirmed Type omeprazole 40 mg capsule,delayed 40 mg PO DAILY 10/08/22 12/17/22 History release lorazepam 0.5 mg tablet 0.5 mg PO DAILY 12/11/22 12/11/22 History sertraline 50 mg tablet 50 mg PO DAILY 12/11/22 12/17/22 History oxycodone 5 mg tablet 5 mg PO Q6-8H PRN pain #30 tabs 12/17/22 Rx ondansetron 4 mg disintegrating 4 mg PO Q8H PRN nausea and 12/18/22 Rx tablet vomiting #14 tabs Allergies Allergy/AdvReac Type Severity Reaction Status Date / Time No Known Allergies Allergy Verified 12/24/22 08:29 Vital Signs Vital Signs - 24 hr 12/24/22 08:26 12/24/22 09:00 Temperature 36.6 C Pulse Rate 97 66 Respiratory Rate 15 15 Blood Pressure 157/89 H 133/87 Pulse Oximetry 99 99 Oxygen Delivery Room Air Exam Narrative: Right tonsillar fossa bleed Assessment and Plan Assessment and plan (1) Post-tonsillectomy hemorrhage: Code(s): J95.830 - Postprocedural hemorrhage of a respiratory system organ or structure following a respiratory system procedure Status: Acute Assessment and Plan: Plan or control of tonsillectomy hemorrhage. Risks were discussed including bleeding infection damage to surrounding structures postoperative nausea need for more time off work time off school. The fact that this does not decrease the risk of bleeding in the future from a different spot. Patient voiced understanding of these risks and agreed. Damage to any structure of the clavicles by myself damage to any structure in the neck chin and remains anesthesia. Including vocal cord paralysis.
--- NOTE | 2022-12-24 09:04 | WPDHPUPDATE1 ---
History and Physical Update Update Date/Time: 12/24/22 09:04 History and Physical has been reviewed, including an updated exam of the patient. There are NO changes in the patient's condition. Risks, benefits, and alternatives have been discussed and questions answered. Patient agrees to proceed with procedure.
--- NOTE | 2022-12-24 09:12 | WPDANESEPPF ---
Anes - Initial Pre Proc Eval Procedure: Operation Date: 12/24/22 10:00 Proposed Procedures p Post Op Tonsil Bleed - Jose Delacruz MD Date/Time: 12/24/22 09:12 Surgeon: Jose Delacruz MD Pre Op Diagnosis: Bleeding from tonsils Patient Data Age: 22 Gender: M Height: 1.88 m Weight: 111 kg Last Vital Signs Temp 36.6 C 12/24/22 08:26 Pulse 66 12/24/22 09:00 Resp 15 12/24/22 09:00 BP 133/87 12/24/22 09:00 Pulse Ox 99 12/24/22 09:00 O2 Del Method Room Air 12/24/22 08:26 Allergies Allergy/AdvReac Type Severity Reaction Status Date / Time No Known Allergies Allergy Verified 12/24/22 08:29 Home Medications Medication Instructions Recorded Confirmed Type omeprazole 40 mg capsule,delayed 40 mg PO DAILY 10/08/22 12/17/22 History release lorazepam 0.5 mg tablet 0.5 mg PO DAILY 12/11/22 12/11/22 History sertraline 50 mg tablet 50 mg PO DAILY 12/11/22 12/17/22 History oxycodone 5 mg tablet 5 mg PO Q6-8H PRN pain #30 tabs 12/17/22 Rx ondansetron 4 mg disintegrating 4 mg PO Q8H PRN nausea and 12/18/22 Rx tablet vomiting #14 tabs Patient hx anesthesia problems: none Family hx anesthesia problems: none Results Review: All pre-operative results and documents have been reviewed as part of the pre-operative evaluation. [facility] Past Medical History Medical History Anxiety PONV (postoperative nausea and vomiting) Social History Social History Smoking status: Never smoker Alcohol intake: current Substance use type: does not use Lack of Transportation: No Lack of Food: Never True Current Housing: I Have Housing Concerned About Future Housing: No Difficulty Paying Gas/Electric Bills: No Difficulty Paying for Meds: No Currently Unemployed: No Education: Associate Degree Difficulty w/ Childcare or Family Care: No Spiritual care concerns: No Anes - Eval Final PreProcedure Day of Procedure 12/24/22 09:12 Patient weight: overweight Heart: regular rate and rhythm Lungs: clear to auscultation Airway: Mallampati scale class II Neurological: alert and oriented Last oral intake: >/= 8 hours ASA classification: II Emergent: yes Anesthetic plan: proceed Anesthesia type and monitoring: general ETT and standard monitoring Results Review: All pre-operative results and documents have been reviewed as part of the pre-operative evaluation. Informed Consent: The patient's anesthetic plan and its attendant risks and benefits were discussed with the patient/family/POA. Questions were solicited and answers provided to the satisfaction of the patient/family/POA.
[2022-12-24] MEDS: SCOPOLAMINE 1.5 MG PATCH TRANSDERM (09:15)
[2022-12-24] MEDS: LACTATED RINGERS 1,000 ML 30 ML IV CONT (10:10)
--- NOTE | 2022-12-24 10:23 | W.PM.PROC2 ---
Procedure Note - Detailed Date of Procedure 12/24/22 Pre-op Diagnosis Bleeding from tonsils Post-op Diagnosis Same Procedure Performed Post tonsillectomy hemorrhage Surgeon Jose Delacruz MD Anesthesia General Indications See above Findings Bleeding right midpole large venous bleed controlled Bovie suction electrocautery setting of 15 Description of Procedure Patient identified consent verified preop. Patient brought to the operating. Time-out performed. General anesthesia induced endotracheal tube secured. Patient prepped reposition procedure confirmed. McIvor mouthgag inserted clot suctioned out bleeding ensued controlled with tonsil ball and Bovie suction electrocautery setting of 15. Afterwards the McIvor mouth gag was lowered opened the stomach was suctioned out an OG tube. The operative site was gently rubbed no bleeding ensued. Total blood loss 10 cc. I performed all dictated portions of procedure. McIvor mouth gag removed. Care the patient given back to Anesthesiology. No complications. Estimated Blood Loss 10 Drains No Packing No Pathology None sent Complications No immediate complications Condition Stable Disposition PACU [facility] Billing Surgery - Charge Forward: Surgery Billing
[2022-12-24] MEDS: ONDANSETRON INJ 4 MG/2 ML VIAL IV PUSH (11:15)
[2022-12-24] MEDS: oxyCODONE (*CRX) 5 MG/5 ML ORAL SOLN IR PO (11:43)
== END 2022-12-24 12:12 | disposition home or self-care (01) ==
LOC: ANHED 08:55 → ANHSURGERY 08:59
PROVIDERS: Emergency Provider Emergency Medicine; PCP Family Medicine; Visit Provider Otolaryngology
PROC: (CPT 42960; principal; 2022-12-24 10:00)
DX: J95.830 Postprocedural hemorrhage of a respiratory system organ or structure following a respiratory system procedure (principal); Y83.8 Other surgical procedures as the cause of abnormal reaction of the patient, or of later complication, without mention of misadventure at the time of the procedure; F41.9 Anxiety disorder, unspecified
CPT/HCPCS: 42960; 99285; A9270; J0330; J1100; J1170; J2250; J2405; J2704; J3010; J7030; J7120

== ENCOUNTER 2024-10-08 14:47 | Emergency (ER) | payer BC, SELFPAY ==
--- NOTE | ~2024-10-08 | CT_ITS ---
EXAM: CT abdomen pelvis wo [place] - 10/08/2024 15:34 CDT History: 23 years old Male with L flank pain, hx PKD cysts TECHNIQUE: Multidetector CT of the abdomen and pelvis without contrast. Coronal and sagittal reforma ts were also provided for review. Automatic exposure control was used for this study. COMPARISON: None Available. FINDINGS: VISUALIZED CHEST: Visualized lungs are clear. ABDOMEN and PELVIS: LIVER: Within normal limits. GALLBLADDER: No calcified gallstones. BILE DUCTS: No dilatation. SPLEEN: Within normal limits. PANCREAS: Within normal limits. ADRENAL GLANDS: Within normal limits. KIDNEYS and URETERS: No hydronephrosis or hydroureter. 2 mm calculus in the left proximal ureter caus ing mild left hydroureteronephrosis. No right nephrolithiasis. Multiple bilateral renal cysts are see n, compatible with patient's known polycystic kidney disease. URINARY BLADDER: Within normal limits. STOMACH and BOWEL: No abnormal bowel wall thickening. No obstruction or pneumatosis. Normal appendix. REPRODUCTIVE ORGANS: Within normal limits. MESENTERY/PERITONEAL CAVITY: No free fluid or pneumoperitoneum. LYMPH NODES: No abdominal or pelvic lymphadenopathy. ABDOMINAL WALL: Within normal limits. VASCULATURE: Within normal limits. MUSCULOSKELETAL: Within normal limits. IMPRESSION: 2 mm calculus in the left proximal ureter causing mild left hydroureteronephrosis. Reviewed, dictated and finalized at location A. IMPRESSION: 2 mm calculus in the left proximal ureter causing mild left hydroureteronephros is.
[2024-10-08 15:08] VITALS: PULSE 93; RESP 18; TEMP 36.4; O2SAT 93
--- NOTE | 2024-10-08 15:15 | ED.BACK ---
HPI - Back Pain/Injury General Chief Complaint: Back Pain/Injury <Kiarra Adamesuble, [employer] - Last Filed: 10/08/24 15:16> Stated Complaint: kidney stone? <Kiarra Andres Ne, [employer] - Last Filed: 10/08/24 15:16> Time Seen by Provider: 10/08/24 15:10 <Kiarra Andres eN, [employer] - Last Filed: 10/08/24 15:16> Focused HPI: Patient is a 23-year-old male who presents to the ER with complaints of left flank pain that started earlier this morning. He reports the pain gotten worse throughout the day. He denies any nausea/vomiting, abdominal pain, fevers or urinary symptoms. Patient endorses a history of PKD, depression, and anxiety. Patient reports his last bowel movement was this morning and it was normal for him. GENERAL: Well-appearing, well-nourished, and in mild distress d/t pain. HEAD: Normocephalic, atraumatic. CHEST: Clear to auscultation. ?No respiratory distress. +L CVA tenderness HEART: Regular rate and rhythm.? NEURO: ?Alert and oriented x3. Patient screened in triage and initial orders placed.? ?Additional care and disposition to be based upon?diagnostic testing and treatment. <Kiarra PiersDayan Olivia, [employer] - Last Filed: 10/08/24 15:16> Focused HPI: Patient is a 23-year-old male who presents to the ER with complaints of left flank pain that started earlier this morning. He reports the pain gotten worse throughout the day. He denies any nausea/vomiting, abdominal pain, fevers or urinary symptoms. Patient endorses a history of PKD, depression, and anxiety. Patient reports his last bowel movement was this morning and it was normal for him. GENERAL: Well-appearing, well-nourished, and in mild distress d/t pain. HEAD: Normocephalic, atraumatic. CHEST: Clear to auscultation. ?No respiratory distress. +L CVA tenderness HEART: Regular rate and rhythm.? NEURO: ?Alert and oriented x3. Patient screened in triage and initial orders placed.? ?Additional care and disposition to be based upon?diagnostic testing and treatment. <Estefania Johnston PA-C - Last Filed: 10/08/24 18:19> Source: patient <Estefania Johnston PA-C - Last Filed: 10/08/24 18:19> Mode of arrival: ambulatory <Estefania Johnston PA-C - Last Filed: 10/08/24 18:19> Limitations: no limitations <Estefania Johnston PA-C - Last Filed: 10/08/24 18:19> History of Present Illness HPI Narrative: Agree with above HPI. Denies previous history of kidney stones. Reports oliguria, but denies dysuria or hematuria. <Estefania Johnston PA-C - Last Filed: 10/08/24 18:19> Related Data Home Medications: Home Medications ?Medication ?Instructions ?Recorded ?Confirmed ?Last Taken ?Type omeprazole 40 mg capsule,delayed 40 mg PO DAILY 10/08/22 01/16/23 12/17/22 History release lorazepam 0.5 mg tablet 0.5 mg PO DAILY 12/11/22 01/16/23 Unknown History sertraline 50 mg tablet 50 mg PO DAILY 12/11/22 01/16/23 12/17/22 History <Kiarra Olivia, [employer] - Last Filed: 10/08/24 15:16> Allergies/Adverse Reactions: Allergies Allergy/AdvReac Type Severity Reaction Status Date / Time No Known Allergies Allergy Verified 10/08/24 15:13 <Kiarra Olivia, [employer] - Last Filed: 10/08/24 15:16> Review of Systems Review of Systems: All systems reviewed & are unremarkable except as noted in HPI. <Estefania Johnston PA-C - Last Filed: 10/08/24 18:19> All systems reviewed & are unremarkable except as noted in HPI and below <Estefania Johnston PA-C - Last Filed: 10/08/24 18:19> PMFSH Past Medical History Medical History: Medical History (Updated 10/08/24 @ 18:15 by Estefania Johnston PA-C) Polycystic kidney disease PONV (postoperative nausea and vomiting) Anxiety <Kiarra Olivia, KEREN - Last Filed: 10/08/24 15:16> Social History Social History: Social History Smoking status: Never smoker Alcohol intake: current Substance use type: does not use Lack of Transportation: No Lack of Food: Never True Current Housing: I Have Housing Concerned About Future Housing: No Difficulty Paying Gas/Electric Bills: No Difficulty Paying for Meds: No Currently Unemployed: No Education: Associate Degree Difficulty w/ Childcare or Family Care: No Spiritual care concerns: No <Kiarra Olivia, [employer] - Last Filed: 10/08/24 15:16> Exam Narrative: GENERAL: Well appearing, well-nourished, non-toxic, in no acute distress. HEAD: Normocephalic, atraumatic. RESPIRATORY: Airway patent, respirations nonlabored. Clear to auscultation bilaterally, no rales, rhonchi, wheezing. CARDIOVASCULAR: Regular rate and rhythm without murmurs, rubs, or gallops. ABDOMINAL: Soft, no significant tenderness, nondistended. Normoactive BS. Positive CVA tenderness on left. MUSCULOSKELETAL: Moves all extremities. No gross deformities. SKIN: Warm, dry, normal color. NEURO: A&O X3. Speech clear. PSYCHIATRIC: Appropriate mood and affect. Normal interaction. <Estefania Johnston PA-C - Last Filed: 10/08/24 18:19> Course Vital Signs Vital signs: Vital Signs Temperature 97.6 F 10/08/24 15:08 Pulse Rate 93 10/08/24 15:08 Respiratory Rate 18 10/08/24 15:08 Pulse Oximetry 93 10/08/24 15:08 Oxygen Delivery Room Air 10/08/24 15:08 Temperature 98.6 F 10/08/24 17:00 Pulse Rate 82 10/08/24 17:00 Respiratory Rate 16 10/08/24 17:00 Blood Pressure 162/118 H 10/08/24 17:00 Pulse Oximetry 100 10/08/24 17:00 Oxygen Delivery Room Air 10/08/24 17:00 <Kiarra Olivia, [employer] - Last Filed: 10/08/24 15:16> Vital Signs Temperature 97.6 F 10/08/24 15:08 Pulse Rate 93 10/08/24 15:08 Respiratory Rate 18 10/08/24 15:08 Pulse Oximetry 93 10/08/24 15:08 Oxygen Delivery Room Air 10/08/24 15:08 Temperature 98.6 F 10/08/24 17:00 Pulse Rate 82 10/08/24 17:00 Respiratory Rate 16 10/08/24 17:00 Blood Pressure 162/118 H 10/08/24 17:00 Pulse Oximetry 100 10/08/24 17:00 Oxygen Delivery Room Air 10/08/24 17:00 <Estefania Johnston PA-C - Last Filed: 10/08/24 18:19> MDM - Back Pain/Injury MDM Narrative Medical decision making narrative: Patient presented to ED with left flank pain that began this morning. History of polycystic kidney disease. No previous history of kidney stones. Vital signs stable upon arrival. Patient mildly uncomfortable appearing, but in no acute distress. Laboratory studies with white count of 10.5. Kidney function stable, creatinine 1.19. Appears fairly consistent with previous records. UA with 3+ blood, 21-50 RBC, no signs of infection. CT scan of abdomen/pelvis was obtained showing 2 mm left proximal ureteral calculi with mild hydroureteronephrosis. Consistent with clinical picture. Does show evidence of PCKD, but no complications regarding this. Discussed lab and imaging findings with patient. Pain is controlled at this time. Feel he is safe for discharge home with outpatient urology follow-up. Will discharge with Flomax, pain medication, nausea medicine, strainer. Patient in agreement with plan. Feels comfortable going home. Discussed strict return precautions. He voiced understanding. Discharged in stable condition. <Estefania Johnston PA-C - Last Filed: 10/08/24 18:19> Medical Records Attestation: I reviewed the patient's medical records. <Estefania Johnston PA-C - Last Filed: 10/08/24 18:19> Lab Data Attestation: I reviewed the patient's lab results. <Estefania Johnston PA-C - Last Filed: 10/08/24 18:19> Result diagrams: 10/08/24 16:49 10/08/24 16:49 <Kiarra L. [place], [employer] - Last Filed: 10/08/24 15:16> Labs: Lab Results 10/08/24 10/08/24 Range/Units 16:49 17:16 WBC 10.5 H (4.5-10.0) K/mm3 RBC 5.30 (4.6-6.20) M/mm3 Hgb 16.0 (14.0-18.0) g/dL Hct 45.5 (42.0-52.0) % MCV 85.8 (80-100) fl MCH 30.2 (26-34) pg MCHC 35.2 (32-36) g/dl RDW 11.7 (11.5-14.5) % Plt Count 184 (150-375) k/mm3 MPV 9.5 (7.4-10.4) fl Immature Gran % (Auto) 0.2 (0-0.5) % Neut % (Auto) 69.2 (45.5-73.1) % Lymph % (Auto) 19.9 (18.3-44.2) % [place] % (Auto) 7.9 (2.6-8.5) % Eos % (Auto) 2.1 (0-4.4) % Baso % (Auto) 0.7 (0.2-1.2) % Lymph # (Auto) 2.09 (0.9-3.2) K/mm3 [place] # (Auto) 0.8 H (0.1-0.6) K/mm3 Eos # (Auto) 0.2 (0-0.3) K/mm3 Baso # (Auto) 0.1 (0.0-0.1) K/mm3 Abs Immat Gran (auto) 0.02 (0.00-0.031) K/mm3 Absolute Neuts (auto) 7.3 H (1.3-6.7) K/mm3 Absolute Nucleated RBC 0.000 (0.0-0.012) K/mm3 Nucleated RBC % 0.0 (0.0-0.2) % Sodium 141 (137-145) mmol/L Potassium 4.2 (3.4-5.0) mmol/L Chloride 104 (98-107) mmol/L Carbon Dioxide 25 (22-30) mmol/L Anion Gap 12 (4-12) mmol/L BUN 23 H (9-20) mg/dL Creatinine 1.19 (0.7-1.3) mg/dL Estim Creat Clear Calc 115 ml/min Estimated GFR > 60 (59 - ) Glucose 97 (65-110) mg/dL Calcium 9.9 (8.4-10.2) mg/dL Total Bilirubin 0.5 (0.2-1.3) mg/dL AST 34 (17-59) U/L ALT 24 (6-50) U/L Alkaline Phosphatase 60 (38-126) U/L Total Protein 8.2 (6.3-8.2) g/dL Albumin 4.7 (3.5-5.1) g/dL Urine Color Yellow (Yellow) Urine Appearance Clear (Clear) Urine pH 6.0 (5.0-9.0) Ur Specific [place] 1.016 (1.001-1.035) Urine Protein Trace (Negative) mg/dL Urine Glucose (UA) Negative (Negative) mg/dL Urine Ketones Negative (Negative) mg/dL Ur Blood (Man) 3+ H (Negative) Urine Nitrate Negative (Negative) Urine Bilirubin Negative (Negative) Urine Urobilinogen 0.2 (<2.0) mg/dL Leukocyte Esterase Rfl Negative (Negative) MARLENY/UL Urine RBC 21-50 H (0-2) /hpf Urine WBC 0-5 (0-3) /hpf Ur Squamous Epith Cells None seen (Few) /hpf Urine Bacteria None seen /hpf Urine Casts 0-2 <Kiarra Olivia, [employer] - Last Filed: 10/08/24 15:16> Lab Results 10/08/24 10/08/24 Range/Units 16:49 17:16 WBC 10.5 H (4.5-10.0) K/mm3 RBC 5.30 (4.6-6.20) M/mm3 Hgb 16.0 (14.0-18.0) g/dL Hct 45.5 (42.0-52.0) % MCV 85.8 (80-100) fl MCH 30.2 (26-34) pg MCHC 35.2 (32-36) g/dl RDW 11.7 (11.5-14.5) % Plt Count 184 (150-375) k/mm3 MPV 9.5 (7.4-10.4) fl Immature Gran % (Auto) 0.2 (0-0.5) % Neut % (Auto) 69.2 (45.5-73.1) % Lymph % (Auto) 19.9 (18.3-44.2) % [place] % (Auto) 7.9 (2.6-8.5) % Eos % (Auto) 2.1 (0-4.4) % Baso % (Auto) 0.7 (0.2-1.2) % Lymph # (Auto) 2.09 (0.9-3.2) K/mm3 [place] # (Auto) 0.8 H (0.1-0.6) K/mm3 Eos # (Auto) 0.2 (0-0.3) K/mm3 Baso # (Auto) 0.1 (0.0-0.1) K/mm3 Abs Immat Gran (auto) 0.02 (0.00-0.031) K/mm3 Absolute Neuts (auto) 7.3 H (1.3-6.7) K/mm3 Absolute Nucleated RBC 0.000 (0.0-0.012) K/mm3 Nucleated RBC % 0.0 (0.0-0.2) % Sodium 141 (137-145) mmol/L Potassium 4.2 (3.4-5.0) mmol/L Chloride 104 (98-107) mmol/L Carbon Dioxide 25 (22-30) mmol/L Anion Gap 12 (4-12) mmol/L BUN 23 H (9-20) mg/dL Creatinine 1.19 (0.7-1.3) mg/dL Estim Creat Clear Calc 115 ml/min Estimated GFR > 60 (59 - ) Glucose 97 (65-110) mg/dL Calcium 9.9 (8.4-10.2) mg/dL Total Bilirubin 0.5 (0.2-1.3) mg/dL AST 34 (17-59) U/L ALT 24 (6-50) U/L Alkaline Phosphatase 60 (38-126) U/L Total Protein 8.2 (6.3-8.2) g/dL Albumin 4.7 (3.5-5.1) g/dL Urine Color Yellow (Yellow) Urine Appearance Clear (Clear) Urine pH 6.0 (5.0-9.0) Ur Specific [place] 1.016 (1.001-1.035) Urine Protein Trace (Negative) mg/dL Urine Glucose (UA) Negative (Negative) mg/dL Urine Ketones Negative (Negative) mg/dL Ur Blood (Man) 3+ H (Negative) Urine Nitrate Negative (Negative) Urine Bilirubin Negative (Negative) Urine Urobilinogen 0.2 (<2.0) mg/dL Leukocyte Esterase Rfl Negative (Negative) MARLENY/UL Urine RBC 21-50 H (0-2) /hpf Urine WBC 0-5 (0-3) /hpf Ur Squamous Epith Cells None seen (Few) /hpf Urine Bacteria None seen /hpf Urine Casts 0-2 <KELLE Kennedy Last Filed: 10/08/24 18:19> Imaging Data Attestation: I personally reviewed and interpreted this imaging study as follows: <KELLE Kennedy Last Filed: 10/08/24 18:19> Radiologist's impression: ITS Impressions Abdomen/Pelvis CT 10/08/24 15:49 IMPRESSION: 2 mm calculus in the left proximal ureter causing mild left hydroureteronephrosis. <KELLE Kennedy Last Filed: 10/08/24 18:19> Discharge Plan Discharge Clinical Impression: Calculus of proximal left ureter <Kiarra Olivia APRN - Last Filed: 10/08/24 15:16> Patient Disposition: Home <Kiarra Olivia APRN - Last Filed: 10/08/24 15:16> Condition: Stable <KEREN Bailon Last Filed: 10/08/24 15:16> Instructions: Antibiotic Form, Kidney Stones (ED), Flank Pain (ED) <Kiarra Olivia APRN - Last Filed: 10/08/24 15:16> Additional Instructions: Take Flomax daily as prescribed. Continue Tylenol and Ibuprofen as needed for pain. Oxycodone as needed for more severe pain. Do not drive, operate heavy machinery, drink alcohol while on muscle relaxers as this may cause further sedation. Utilize Zofran as needed for nausea. Stay well hydrated. Strain urine to collect stone. Follow-up with urology for further evaluation if needed. Return to the ED if you experience worsening or severe pain, unable to keep down food/drink, fevers, uncontrollable nausea/vomiting, unable to urinate, or any other symptoms of concern. <Kiarra Olivia APRN - Last Filed: 10/08/24 15:16> Patient Language: Latvian <Kiarra Olivia APRN - Last Filed: 10/08/24 15:16> Prescriptions: New tamsulosin [Flomax] 0.4 mg capsule 0.4 mg PO DAILY Qty: 7 0RF ondansetron 4 mg tablet,disintegrating 4 mg PO Q8H PRN (Reason: nausea and vomiting) Qty: 15 0RF oxycodone 5 mg tablet 5 mg PO Q6H PRN (Reason: pain) Qty: 15 0RF No Action omeprazole 40 mg capsule,delayed release(DR/EC) 40 mg PO DAILY ondansetron 4 mg tablet,disintegrating 4 mg PO Q8H PRN (Reason: nausea and vomiting) Qty: 14 0RF lorazepam 0.5 mg tablet 0.5 mg PO DAILY sertraline 50 mg tablet 50 mg PO DAILY <Kiarra Olivia APRN - Last Filed: 10/08/24 15:16> Follow-up/Referrals: John Martinez MD [Physician] - (UROLOGY) Ilan,MD Brain [Primary Care Provider] - <Kiarra Olivia APRN - Last Filed: 10/08/24 15:16> Time of Disposition: 17:42 <Kiarra Olivia APRN - Last Filed: 10/08/24 15:16> 17:42 <Estefania Johnston PA-C - Last Filed: 10/08/24 18:19>
[2024-10-08] MEDS: HYDROcodone/acetaminophen (*CRX) 5-325 MG TABLET 1 TAB PO (16:46)
[2024-10-08 16:56] LABS: Basophils Absolute Auto 0.1 K/mm3 (0.0-0.1); Basophils Percent Auto 0.7 % (0.2-1.2); Eosinophils Absolute Auto 0.2 K/mm3 (0-0.3); Eosinophils Percent Auto 2.1 % (0-4.4); Hematocrit 45.5 % (42.0-52.0); Immature Granulocyte Absolute 0.02 K/mm3 (0.00-0.031); Immature Granulocyte Percent A 0.2 % (0-0.5); Lymphocytes Absolute Auto 2.09 K/mm3 (0.9-3.2); Lymphocytes Percent Auto 19.9 % (18.3-44.2); Mean Corpuscular HGB Conc 35.2 g/dl (32-36); Mean Corpuscular Hemoglobin 30.2 pg (26-34); Mean Corpuscular Volume 85.8 fl (80-100); Mean Platelet Volume 9.5 fl (7.4-10.4); Monocytes Absolute Auto 0.8 K/mm3 (0.1-0.6); Monocytes Percent Auto 7.9 % (2.6-8.5); Neutrophils Absolute Auto 7.3 K/mm3 (1.3-6.7); Neutrophils Percent Auto 69.2 % (45.5-73.1); Platelet Count Result 184 k/mm3 (150-375); Red Cell Distribution Width 11.7 % (11.5-14.5); White Blood Count 10.5 K/mm3 (4.5-10.0)
[2024-10-08 17:00] VITALS: BP 162/118; PULSE 82; RESP 16; TEMP 37; O2SAT 100
[2024-10-08 17:09] LABS: Alanine Aminotransferase 24 U/L (6-50); Albumin Level 4.7 g/dL (3.5-5.1); Alkaline Phosphatase 60 U/L (38-126); Anion Gap 12 mmol/L (4-12); Aspartate Amino Transferase 34 U/L (17-59); Bilirubin,Total 0.5 mg/dL (0.2-1.3); Blood Urea Nitrogen 23 mg/dL (9-20); Calcium 9.9 mg/dL (8.4-10.2); Carbon Dioxide 25 mmol/L (22-30); Chloride 104 mmol/L (98-107); Estimated CRCL calculation 115 ml/min; Estimated Glomerular Filt Rate > 60; Glucose 97 mg/dL (65-110); Potassium 4.2 mmol/L (3.4-5.0); Sodium 141 mmol/L (137-145); Total Protein 8.2 g/dL (6.3-8.2)
[2024-10-08 17:27] LABS: Add Urine Microscopic? YES; Appearance Urine Clear (Clear); Bacteria Urine None Seen /hpf; Bilirubin Urine Negative (Negative); Blood Urine 3+ (Negative); Color Urine Yellow (Yellow); Glucose Urine UA Negative (Negative); Ketones Urine Negative (Negative); Leukocyte Esterase Ur Negative LEU/UL (Negative); Nitrate Urine Negative (Negative); Non Pathogenic Casts 0-2; Protein Urine Trace mg/dL (Negative); RBC Urine 21-50 /hpf (0-2); Specific Grav Ur 1.016 (1.001-1.035); Squamous Epithelial Cell Urine None Seen /hpf (Few); Urobilinogen Urine 0.2 mg/dL (<2.0); WBC Urine 0-5 /hpf (0-3)
[2024-10-08] MEDS: KETOROLAC 30 MG/ML VIAL (*BKC) IV PUSH (17:44)
[2024-10-08] MEDS: TAMSULOSIN HCL 0.4 MG CAPSULE PO (17:44)
[2024-10-08 18:17] VITALS: BP 161/122; PULSE 82; RESP 16; TEMP 36.6; O2SAT 100
== END 2024-10-08 18:21 | disposition home or self-care (01) ==
PROVIDERS: Registered Nurse; Emergency Provider Physician Assistant; PCP Family Medicine
DX: N13.2 Hydronephrosis with renal and ureteral calculous obstruction (principal); Q61.3 Polycystic kidney, unspecified; F41.9 Anxiety disorder, unspecified; Z79.899 Other long term (current) drug therapy
CPT/HCPCS: 36415; 74176; 80053; 81001; 85025; 96374; 99284; A9270; J1885

== ENCOUNTER 2025-01-06 11:29 | Emergency (ER) | payer BC, SELFPAY ==
[2025-01-06] VITALS (13 sets, daily range): BP systolic 131–161; BP diastolic 68–96; PULSE 77–133; RESP 14–23; TEMP 36.4; O2SAT 96–98
--- NOTE | 2025-01-06 11:37 | ED.GENADULT ---
HPI - General Adult General Chief complaint: Allergic Reaction Stated complaint: allergic reaction Time Seen by Provider: 01/06/25 11:33 History of Present Illness HPI narrative: 24-year-old male presents to the emergency department for evaluation for allergic reaction to a suspected wasp sting. Approximate 20 minutes prior to arrival patient was working on the [place] [employer] doing some trimming with a string tremor and felt a bite to his left ankle. Patient states after that he began developing lightheadedness weakness and hives. Patient also began developing some chest tightness. Patient denies any difficulty breathing or swallowing. Upon arrival emergency department patient does have hives on upper lower extremity and some erythema and swelling of the face with no specific swelling of lips or tongue. Patient did take 50 mg of p.o. Benadryl approximately 10 minutes prior to arrival. Related Data Home Medications ?Medication ?Instructions ?Recorded ?Confirmed ?Last Taken ?Type omeprazole 40 mg capsule,delayed 40 mg PO DAILY 10/08/22 01/16/23 12/17/22 History release lorazepam 0.5 mg tablet 0.5 mg PO DAILY 12/11/22 01/16/23 Unknown History sertraline 50 mg tablet 50 mg PO DAILY 12/11/22 01/16/23 12/17/22 History Allergies Allergy/AdvReac Type Severity Reaction Status Date / Time No Known Allergies Allergy Verified 01/06/25 11:36 Review of Systems Review of Systems: All systems reviewed & are unremarkable except as noted in HPI and below PMFSH Past Medical History Medical History (Updated 01/06/25 @ 14:51 by Esvin Concepcion MD) Polycystic kidney disease PONV (postoperative nausea and vomiting) Anxiety Social History Social History Smoking status: Never smoker Alcohol intake: current Substance use type: does not use Lack of Transportation: No Lack of Food: Never True Current Housing: I Have Housing Concerned About Future Housing: No Difficulty Paying Gas/Electric Bills: No Difficulty Paying for Meds: No Currently Unemployed: No Education: Associate Degree Difficulty w/ Childcare or Family Care: No Spiritual care concerns: No Exam Narrative: APPEARANCE: Ill-appearing HEAD: normocephalic, atraumatic. EYES: PERRLA/EOMI, conjunctivae clear. NOSE: Normal no drainage EARS:TMS clear with good light reflex. THROAT: Pharynx clear, no exudate. NECK: Supple. No adenopathy, no masses. RESPIRATORY: Airway patent, respirations nonlabored. Clear to auscultation bilaterally, no rales, rhonchi, wheezing. CARDIOVASCULAR: Regular rate and rhythm without murmurs rubs or gallops. ABDOMINAL: Soft, nontender, nondistended, normal bowel sounds MUSCULOSKELETAL: Moves all extremities. Strength/ROM intact, No edema, No calf tenderness. NEURO: Alert. Cranial nerves II through XII intact. Good gait. Good coordination SKIN: Hives on face chest arms and back Course Vital Signs Vital signs: Vital Signs Pulse Oximetry 98 01/06/25 11:30 Oxygen Delivery Room Air 01/06/25 11:30 Temperature 97.6 F 01/06/25 11:33 Pulse Rate 81 01/06/25 15:01 Respiratory Rate 20 01/06/25 15:01 Blood Pressure 131/68 01/06/25 15:01 Pulse Oximetry 98 01/06/25 15:01 Oxygen Delivery Room Air 01/06/25 11:33 Medical Decision Making [facility] Narrative Medical decision making narrative: 24-year-old male presents emergency department for evaluation for suspected allergic reaction to insect bite. Patient did take 50 mg of p.o. Benadryl prior to arrival. He was treated with additional 25 mg of IV Benadryl, 125 of IV Solu-Medrol, 0.3 of IM epinephrine, 20 mg of IV Pepcid. Patient was also ordered 1 L of lactated Ringer's. On re-evaluations patient's heart rate is improved and patient states he does feel improved. Patient's hives have also improved. Patient denies any difficulty breathing or swallowing. On further re-evaluation after 3 hours patient's symptoms have almost completely resolved. Patient has almost no residual hives. Patient denies any chest tightness or shortness of breath. Patient was updated results of the workup and patient will be started on a course of steroids for the next 5 days. Patient also provided prescription for epi pens. All questions concerns were addressed patient was well-appearing at time of discharge. Critical Care Procedure Note Authorized and Performed by: Esvin Concepcion Total critical care time: Approximately 36 minutes Due to a high probability of clinically significant, life threatening deterioration, the patient required my highest level of preparedness to intervene emergently and I personally spent this critical care time directly and personally managing the patient. This critical care time included obtaining a history; examining the patient; pulse oximetry; ordering and review of studies; arranging urgent treatment with development of a management plan; evaluation of patient's response to treatment; frequent reassessment; and, discussions with other providers. This critical care time was performed to assess and manage the high probability of imminent, life-threatening deterioration that could result in multi-organ failure. It was exclusive of separately billable procedures and treating other patients and teaching time. Please see MDM section and the rest of the note for further information on patient assessment and treatment. Vital Signs Vital Signs: Vital Signs Pulse Oximetry 98 01/06/25 11:30 Oxygen Delivery Room Air 01/06/25 11:30 Temperature 97.6 F 01/06/25 11:33 Pulse Rate 81 01/06/25 15:01 Respiratory Rate 20 01/06/25 15:01 Blood Pressure 131/68 01/06/25 15:01 Pulse Oximetry 98 01/06/25 15:01 Oxygen Delivery Room Air 01/06/25 11:33 Critical Care Time Critical Care Time Critical Care Time: Yes Total Critical Care Time: 36 Discharge Plan Discharge Clinical Impression: Allergic reaction to bee sting Patient Disposition: Home Condition: Stable Instructions: Antibiotic Form, Insect Bite or Sting (ED), Anaphylaxis (ED) Additional Instructions: Steroids as directed for the next 5 days. Benadryl as needed for intermittent hives. Epipen as needed. If you require the use of the EpiPen then please return to the emergency department. Have close follow-up with your primary care physician Patient Language: Macanese Prescriptions: New epinephrine [EpiPen 2-Feliz] 0.3 mg/0.3 mL auto-injector 0.3 ml IM ONCE Qty: 2 0RF Rx Instructions: as a single dose; may repeat once prednisone 50 mg tablet 50 mg PO DAILY 5 Days Qty: 5 0RF No Action omeprazole 40 mg capsule,delayed release(DR/EC) 40 mg PO DAILY ondansetron 4 mg tablet,disintegrating 4 mg PO Q8H PRN (Reason: nausea and vomiting) Qty: 14 0RF tamsulosin [Flomax] 0.4 mg capsule 0.4 mg PO DAILY Qty: 7 0RF ondansetron 4 mg tablet,disintegrating 4 mg PO Q8H PRN (Reason: nausea and vomiting) Qty: 15 0RF oxycodone 5 mg tablet 5 mg PO Q6H PRN (Reason: pain) Qty: 15 0RF lorazepam 0.5 mg tablet 0.5 mg PO DAILY sertraline 50 mg tablet 50 mg PO DAILY Follow-up/Referrals: Ilan,MD Brain [Primary Care Provider, Family Practice]
[2025-01-06] MEDS: LACTATED RINGERS 1,000 ML 999 ML (11:42)
[2025-01-06] MEDS: EPINEPHrine HCL INJ 1 MG/ML AMPUL 0.3 MG IM (11:43)
[2025-01-06] MEDS: FAMOTIDINE 20 MG/2 ML VIAL IV PUSH (11:43)
== END 2025-01-06 15:15 | disposition home or self-care (01) ==
PROVIDERS: Emergency Provider Emergency Medicine; PCP Family Medicine
DX: T63.441A Toxic effect of venom of bees, accidental (unintentional), initial encounter (principal)
CPT/HCPCS: 96361; 96372; 96374; 96375; 99284; J0166; J1200; J2919; J7120